=== PATIENT | female | born 1995 ===

== ENCOUNTER 2022-05-15 11:24 | Emergency (ER) | payer SELFPAY ==
[2022-05-15 12:46] LABS: Basophils % (Auto) 0.5 % (0.0-1.8); Eosinophils % (Auto) 0.8 % (0.0-4.3); Hematocrit 37.3 % (30.3-42.9); Hemoglobin 12.2 gm/dl (10.1-14.3); Lymphocytes # (Auto) 1.2 K/mm3 (1.2-5.4); Lymphocytes % (Auto) 21.6 % (13.4-35.0); Mean Corpuscular HGB Conc 33 % (30-34); Mean Corpuscular Volume 86 fl (79-97); Monocytes # (Auto) 0.3 K/mm3 (0.0-0.8); Monocytes % (Auto) 5.2 % (0.0-7.3); Platelet Count 360 K/mm3 (140-440); Red Blood Count 4.31 M/mm3 (3.65-5.03); Red Cell Distribution Width 14.8 % (13.2-15.2)
[2022-05-15 13:04] LABS: Alanine Aminotransferase 13 units/L (7-56); Albumin 5.5 g/dL (3.9-5); Blood Urea Nitrogen 11 mg/dL (7-17); Hemolysis Index 5
[2022-05-15 13:17] LABS: BUN/Creatinine Ratio 18
--- NOTE | 2022-05-15 14:31 | Emergency Department Report ---
ED Psych HPI - General Chief Complaint: Psych Stated Complaint: PSYCH Time Seen by Provider: 05/15/22 11:51 Source: patient, EMS Mode of arrival: Ambulatory - History of Present Illness Initial Comments: Patient is a 27-year-old female brought in by EMS for psychiatric evaluation. Patient reports viral like symptoms over the past several days with concern for rabies after she had a cat roughly a month ago. She denies any scratches or bites. Denies any suicidal or homicidal ideations. - Related Data Allergies Allergy/AdvReac Type Severity Reaction Status Date / Time No Known Allergies Allergy Unverified 05/15/22 11:34 ED Review of Systems ROS: Stated complaint: PSYCH Other details as noted in HPI Constitutional: malaise. denies: chills, fever Respiratory: denies: cough, shortness of breath, wheezing Cardiovascular: denies: chest pain, palpitations Gastrointestinal: denies: abdominal pain, nausea, diarrhea Genitourinary: denies: urgency, dysuria, discharge Skin: denies: rash, lesions Neurological: denies: headache, weakness, paresthesias Psychiatric: denies: anxiety, depression ED Past Medical Hx - Past Medical History Hx Psychiatric Treatment: Yes (depression) ED Physical Exam - General Limitations: No Limitations General appearance: alert, in no apparent distress - Head Head exam: Present: atraumatic, normocephalic - Respiratory Respiratory exam: Present: normal lung sounds bilaterally. Absent: respiratory distress - Cardiovascular Cardiovascular Exam: Present: regular rate, normal rhythm, normal heart sounds - GI/Abdominal GI/Abdominal exam: Present: soft. Absent: distended, tenderness - Rectal Rectal exam: Present: deferred - Neurological Exam Neurological exam: Present: alert, oriented X3 - Psychiatric Psychiatric exam: Present: normal affect, normal mood - Skin Skin exam: Present: warm, dry, intact, normal color ED Course Vital Signs 05/15/22 11:30 Temperature 98.4 F Pulse Rate 88 Respiratory 16 Rate Blood Pressure 122/84 [Left] O2 Sat by Pulse 98 Oximetry ED Medical Decision Making - Lab Data Result diagrams: 05/15/22 12:14 05/15/22 12:14 - Medical Decision Making Labs grossly unremarkable except for elevated TSH 14. Patient evaluated by psychiatry and deemed stable for outpatient follow-up/management. No history or physical exam findings concerning for rabies. Patient stable for discharge home with return precautions. Critical care attestation.: If time is entered above; I have spent that time in minutes in the direct care of this critically ill patient, excluding procedure time. ED Disposition Clinical Impression: Elevated TSH, Encounter for medical screening examination Disposition: 01 HOME / SELF CARE / HOMELESS Is pt being admited?: No Condition: Stable Instructions: Hypothyroidism, Medical Screening Exam Additional Instructions: Please follow-up with your regular doctor at your earliest convenience. You may return if your symptoms worsen. Time of Disposition: 14:37
[2022-05-15 15:00] VITALS: BP 124/86
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
== END 2022-05-15 15:01 | disposition home or self-care (01) ==
LOC: EDBD → ED 11:24
DX: R94.6 Abnormal results of thyroid function studies (principal); Z13.30 Encounter for screening examination for mental health and behavioral disorders, unspecified
CPT/HCPCS: 36415; 80053; 80320; 84443; 84703; 85025; 99284; G0480